=== PATIENT | female | born 1940 | race Caucasian/White ===

== ENCOUNTER 2020-04-08 06:10 | Day surgery (SDC) | payer MEDICARE, OTHER ==
[2020-04-08] MEDS ORDERED: Propofol 200 MG/20 ML SDV IV ONE (06:11)
[2020-04-08] MEDS ORDERED: Lidocaine 2% 5 ML SDV IV ONE (06:11)
[2020-04-08] MEDS ORDERED: Lactated Ringers 1,000 ML IV SCH (08:00)
[2020-04-08] MEDS ORDERED: Sodium Chloride 0.9% 10 ML Syringe FLUSH PRN (08:00)
--- NOTE | 2020-04-08 08:40 | PCM.OPNOTE ---
- General Post-Op/Procedure Note Date of Surgery/Procedure: 04/08/20 Operative Procedure(s): egd with biopsy. c scope with biopsy Findings: antritis hiatal hernia fundic gland polyps colitis limited to ascending colon Pre Op Diagnosis: fe def anemia Post-Op Diagnosis: antritis. hiatal hernia. fundic gland polyps. colitis limited to ascending colon Anesthesia Technique: MAC Primary Surgeon: Saleem Palomo Anesthesia Provider: Wu Booth Pathology: stomach colon Complications: None Condition: Good Free Text/Narrative:: see dictation
[2020-04-08 09:12] VITALS: BP 150/79; PULSE 92
--- NOTE | 2020-04-08 11:40 | OR ---
DATE OF OPERATION: 04/08/2020 SURGEON: Saleem Palomo MD PROCEDURE PERFORMED: Esophagogastroduodenoscopy and colonoscopy, both cold forceps biopsy. INDICATIONS FOR PROCEDURE: This is a 79-year-old white female who is referred with diagnosis of an iron deficiency anemia. Endoscopy was requested. She is essentially asymptomatic with regard to any GI issues. Does have a history of constipation, but otherwise really no marked complaints. DESCRIPTION OF PROCEDURE: After an excellent IV sedation was administered, the bite block was inserted. Flexible endoscope was passed without difficulty down the patient's esophagus into the stomach. Stomach was insufflated. Scope passed through the pylorus to the second portion of the duodenum and slowly withdrawn. The following findings were noted: Duodenum was unremarkable. In the area of the antrum, there was some mild irritation, multiple biopsies were taken. In the body of the stomach, the patient does have a hiatal hernia. Approximately 5 cm of her stomach is in her chest. 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 GE junction measured about 30 cm, which, given the patient's height, does not appear to be unusual. The remainder of the esophageal exam was unremarkable. Our attention was then turned to the colon. Digital rectal exam was performed. No marked abnormality was noted. Flexible colonoscope was inserted and advanced to the cecum. The prep was good. There were some areas of liquid stool with particulate matter. We were able to irrigate and get a reasonable view of the mucosa. The following findings were noted: Ascending colon; in the area of the cecum, there was an area of inflammation. This was biopsied with cold biopsy forceps. The transverse colon was unremarkable. Descending colon, unremarkable. Sigmoid and rectum, unremarkable. Results will be sent to the patient via letter. /[id number] /MODL
== END 2020-04-08 09:25 | disposition home or self-care (01) ==
LOC: FB.SDS 06:10
PROVIDERS: ATTEND Surgery
DX: K51.40 Inflammatory polyps of colon without complications (principal); K29.50 Unspecified chronic gastritis without bleeding; D50.9 Iron deficiency anemia, unspecified; K44.9 Diaphragmatic hernia without obstruction or gangrene; K31.89 Other diseases of stomach and duodenum; Z79.82 Long term (current) use of aspirin; Z79.4 Long term (current) use of insulin; Z79.899 Other long term (current) drug therapy; Z88.2 Allergy status to sulfonamides; Z88.8 Allergy status to other drugs, medicaments and biological substances
CPT/HCPCS: 00813-QZ; 88305; 88342; J2001; J2704; J7120

== ENCOUNTER 2021-10-13 06:52 | Day surgery (SDC) | payer MEDICARE, OTHER ==
[~2021-10-13 06:52] MED LIST: Lactated Ringers 1,000 ML IV SCH; Sodium Chloride 0.9% 10 ML Syringe FLUSH PRN
[2021-10-13] MEDS ORDERED: Glycopyrrolate 0.2 MG/ML 5 ML MDV IV ONE (06:53)
[2021-10-13] MEDS ORDERED: Lidocaine 2% 5 ML SDV INJECT ONE (06:53)
[2021-10-13] MEDS ORDERED: Propofol 200 MG/20 ML SDV IV ONE (06:53)
[2021-10-13 07:14] VITALS: BP 165/78; PULSE 72
[2021-10-15 13:13] LABS: ADENOVIRUS F 40/41 Not Detected (Not Detected); ASTROVIRUS Not Detected (Not Detected); C DIFFICILE TOXIN A/B Not Detected (Not Detected); CAMPYLOBACTER Not Detected (Not Detected); CRYPTOSPORIDIUM Not Detected (Not Detected); CYCLOSPORA CAYETANENSIS Not Detected (Not Detected); ENTAMOEBA HISTOLYTICA Not Detected (Not Detected); ENTEROAGGREGATIVE E COLI Not Detected (Not Detected); ENTEROPATHOGENIC E COLI Not Detected (Not Detected); ENTEROTOXIGENIC E COLI Not Detected (Not Detected); GIARDIA LAMBLIA Not Detected (Not Detected); NOROVIRUS GI/GII Not Detected (Not Detected); PLESIOMONAS SHIGELLOIDES Not Detected (Not Detected); ROTAVIRUS A Not Detected (Not Detected); SALMONELLA Not Detected (Not Detected); SAPOVIRUS Not Detected (Not Detected); SHIGA-TOXIN-PRODUCING E COLI Not Detected (Not Detected); SHIGELLA/ENTEROINVASIVE E COLI Not Detected (Not Detected); VIBRIO Not Detected (Not Detected); VIBRIO CHOLERAE Not Detected (Not Detected); YERSINIA ENTEROCOLITICA Not Detected (Not Detected)
== END 2021-10-13 09:59 | disposition home or self-care (01) ==
LOC: FB.SDS 06:52
PROVIDERS: ATTEND Surgery
DX: K52.9 Noninfective gastroenteritis and colitis, unspecified (principal); K29.50 Unspecified chronic gastritis without bleeding; R63.4 Abnormal weight loss; K44.9 Diaphragmatic hernia without obstruction or gangrene; F32.A Depression, unspecified; K21.9 Gastro-esophageal reflux disease without esophagitis; I10 Essential (primary) hypertension; Z98.890 Other specified postprocedural states; Z79.899 Other long term (current) drug therapy; Z79.82 Long term (current) use of aspirin; Z88.2 Allergy status to sulfonamides; Z88.8 Allergy status to other drugs, medicaments and biological substances
CPT/HCPCS: 00813; 0097U; 43239; 45380; 88305; 88342; 89055; J2704; J3490; J7120

== ENCOUNTER 2022-01-15 16:12 | Emergency (ER) | payer MEDICARE, OTHER ==
[2022-01-15] MEDS ORDERED: Sodium Chloride 0.9% 1,000 ML IV SCH (16:30)
[2022-01-15] MEDS: Morphine 2 MG/ML SYRINGE IVPUSH ONE ×2 (16:46→19:07)
[2022-01-15] MEDS ORDERED: Diatrizoate Meglumine/Diatrizoate Sodium 37% 30 ML Bottle PO ONE (18:38)
[2022-01-15] MEDS ORDERED: metroNIDAZOLE 500 MG Tab PO STA (19:46)
[2022-01-15] MEDS ORDERED: Ciprofloxacin 500 MG Tab PO STA (19:46)
[2022-01-15] MEDS ORDERED: Labetalol 20 MG/4 ML Syringe IVPUSH STA (20:26)
[2022-01-15] MEDS: Sodium Chloride 0.9% 10 ML Syringe FLUSH PRN (21:10)
[2022-01-15] MEDS: Piperacillin/Tazobactam 3.375 GM in Sodium Chloride 0.9% 50 ML IV SCH (23:30)
[2022-01-15] MEDS: Acetaminophen 325 MG Tab PO PRN (23:31)
[2022-01-15] MEDS ORDERED: Metoprolol Succinate 50 MG Tab.ER PO ONE (23:37)
[2022-01-16] MEDS: Sodium Chloride 0.9% 10 ML Syringe FLUSH PRN ×5 (00:05→15:43)
[2022-01-16] MEDS: Piperacillin/Tazobactam 3.375 GM in Sodium Chloride 0.9% 50 ML IV SCH ×2 (05:50→11:26)
[2022-01-16] MEDS: Acetaminophen 325 MG Tab PO PRN ×2 (06:25→15:42)
[2022-01-16] MEDS: Ondansetron 4 MG/2 ML SDV IVPUSH PRN ×2 (07:42→15:43)
[2022-01-16] MEDS ORDERED: Metoclopramide 10 MG/2 ML SDV IVPUSH PRN (12:01)
[2022-01-16 16:27] VITALS: BP 142/68; PULSE 83
== END 2022-01-16 16:00 ==
LOC: FB.ED 16:12
DX: K50.90 Crohn's disease, unspecified, without complications (principal); R07.9 Chest pain, unspecified; I16.9 Hypertensive crisis, unspecified; I10 Essential (primary) hypertension; I48.91 Unspecified atrial fibrillation; Z88.2 Allergy status to sulfonamides; Z88.8 Allergy status to other drugs, medicaments and biological substances; Z79.82 Long term (current) use of aspirin; Z79.899 Other long term (current) drug therapy
CPT/HCPCS: 36415; 74176; 80048; 82150; 83690; 84484; 85025; 93005; 93010; 96361; 96365; 96375; 96376; 99284; 99285-25; A9270-GY; J2270; J2405; J2543; J2765; J3490; J7030; Q9963

== ENCOUNTER 2023-01-16 22:44 | Emergency (ER) | payer MEDICARE, OTHER ==
[2023-01-16] MEDS ORDERED: Sodium Chloride 0.9% 10 ML Syringe FLUSH PRN (22:46)
[2023-01-16] MEDS ORDERED: Sodium Chloride 0.9% 1,000 ML IV ONE (22:46)
[2023-01-16 23:07] LABS: BASOPHILS PERCENT AUTO 0.3 % (0.2-1.5); EOSINOPHILS ABSOLUTE AUTO 0.1 x10-3/uL (0.0-0.8); EOSINOPHILS PERCENT AUTO 0.8 % (0.6-8.1); HEMATOCRIT 27.6 % (34.2-48.2); LYMPHOCYTES ABSOLUTE AUTO 1.9 x10-3/uL (1.0-4.4); LYMPHOCYTES PERCENT AUTO 14.5 % (18.4-52.1); MEAN CORPUSCULAR HEMOGLOBIN 30.8 pg (23.9-33.9); MEAN CORPUSCULAR HGB CONC 32.7 g/dL (31.9-34.8); MEAN CORPUSCULAR VOLUME 94.3 fL (76.7-100.5); MEAN PLATELET VOLUME 7.1 fL (7.1-12.4); MONOCYTES ABSOLUTE AUTO 2.8 x10-3/uL (0.3-1.0); MONOCYTES PERCENT AUTO 21.7 % (4.4-15.7); NEUTROPHILS ABSOLUTE AUTO 8.2 x10-3/uL (1.5-6.3); NEUTROPHILS PERCENT AUTO 62.7 % (30.8-76.2); PLATELET COUNT,PLT 293 x10(3)uL (151-488); RED BLOOD CELL COUNT 2.93 x10(6)uL (3.60-5.20); RED CELL DISTRIBUTION WIDTH 13.4 % (12.3-16.5)
[2023-01-16 23:11] LABS: BLOOD UREA NITROGEN,BUN 23 mg/dL (7-18); BUN/CREATININE RATIO 16.4 (9-20); CARBON DIOXIDE,CO2 27 mmol/L (21-32); CHLORIDE,CL 99 mmol/L (100-110); CREATININE 1.4 mg/dL (0.55-1.02); ESTIMATED GFR 38 mL/min (>60); GLUCOSE RANDOM 132 mg/dL (80-116); POTASSIUM,K 4.4 mmol/L (3.5-5.3); SODIUM,NA 134 mmol/L (135-145)
[2023-01-16 23:18] LABS: A/G RATIO 0.9; ALANINE AMINOTRANSFERASE,ALT 6 U/L (12-36); ALBUMIN 3.1 g/dL (3.2-4.6); ALKALINE PHOSPHATASE 72 IU/L (56-112); ASPARTATE AMNIOTRANSFERASE,AST 8 IU/L (5-25); BILIRUBIN TOTAL 0.4 mg/dL (0.1-1.3); PROTEIN TOTAL,TP 6.5 g/dL (6.0-8.0)
[2023-01-16 23:19] VITALS: BP 70/40; PULSE 70
[2023-01-17] MEDS ORDERED: Sodium Chloride 0.9% 500 ML IV SCH (00:30)
[2023-01-17] MEDS ORDERED: Sodium Chloride 0.9% 500 ML IV ONE (00:35)
== END 2023-01-17 01:47 | disposition home or self-care (01) ==
LOC: FB.ED 22:44
DX: K52.9 Noninfective gastroenteritis and colitis, unspecified (principal); E86.0 Dehydration; D50.9 Iron deficiency anemia, unspecified; I48.91 Unspecified atrial fibrillation; I10 Essential (primary) hypertension; K21.9 Gastro-esophageal reflux disease without esophagitis; Z88.2 Allergy status to sulfonamides; Z88.8 Allergy status to other drugs, medicaments and biological substances; Z79.82 Long term (current) use of aspirin; Z79.899 Other long term (current) drug therapy
CPT/HCPCS: 36415; 80053; 84484; 85025; 93005; 93010; 96360; 96361; 99283; 99285-25; J7030; J7040